=== PATIENT | female | born 1940 | race Caucasian/White ===

== ENCOUNTER 2016-05-05 11:38 | Inpatient (IN) | payer MEDICARE ==
--- NOTE | 2016-05-05 11:45 | ER Document Report ---
ED Respiratory Problem - General Stated Complaint: DIFFICULTY BREATHING Mode of Arrival: Medic Information source: Patient, Emergency Med Personnel, Outside Facility Records TRAVEL OUTSIDE OF THE [place] IN LAST 30 DAYS: No - HPI Patient complains to provider of: Short of breath Onset: Last week Duration: Worse/persistent - YESTERDAY Quality of pain: Other - TEARING, RETROSTERNAL W/ COUGH Context: denies: DVT, Hx asthma, Hx COPD Short of Breath: Moderate Chest pain/discomfort: Center Cough: Productive Sputum amount: Small Sputum color: Yellow Sputum consistency: Mucoid At home treatment: Diuretics EMS treatments: Oxygen Associated symptoms: Chills, Cough, Fever, Short of breath. denies: Leg/calf/ joint pain, Orthopnea Similar symptoms previously: Yes Recently seen / treated by doctor: Yes - NATHALIE Mixon, 04/30; PCP TODAY - Related Data Allergies/Adverse Reactions: ciprofloxacin [From Cipro] Allergy (Verified 04/30/16 11:11) codeine Allergy (Verified 04/30/16 11:11) isosorbide [From Isordil] Allergy (Verified 04/30/16 11:11) tramadol Allergy (Verified 04/30/16 11:11) dopsone Allergy (Uncoded 04/30/16 11:11) Past Medical History - General Information source: Patient - Social History Smoking Status: Former Smoker Cigarette use (# per day): No Frequency of alcohol use: Rare Drug Abuse: None Lives with: Spouse/Significant other Family History: Reviewed & Not Pertinent Patient has suicidal ideation: No Patient has homicidal ideation: No - Past Medical History Cardiac Medical History: Reports: Hx Atrial Fibrillation, Hx Hypertension Pulmonary Medical History: Reports: None Neurological Medical History: Reports: None Endocrine Medical History: Reports: None Renal/ Medical History: Reports: None Malignancy Medical History: Reports: None GI Medical History: Reports: None Musculoskeltal Medical History: Reports Hx Arthritis Psychiatric Medical History: Reports: None Physical Exam - Vital signs Vitals: Temp Pulse Resp BP Pulse Ox 99.5 F 106 H 22 H 103/59 L 96 05/05/16 11:52 05/05/16 11:52 05/05/16 11:52 05/05/16 11:52 05/05/16 11:52 Interpretation: Tachycardic, Tachypneic Course - Vital Signs Vital signs: Temp Pulse Resp BP Pulse Ox 99.5 F 107 H 18 104/71 94 05/05/16 11:52 05/05/16 12:32 05/05/16 12:32 05/05/16 12:32 05/05/16 12:32 - Laboratory Result Diagrams: 05/05/16 12:20 05/05/16 12:20 Laboratory results interpreted by me: 05/05/16 05/05/16 05/05/16 12:20 12:20 12:35 WBC 18.7 H Hgb 11.9 L Hct 35.1 L RDW 14.1 H Seg Neuts % (Manual) 89 H Band Neutrophils % 7 H Lymphocytes % (Manual) 1 L Monocytes % (Manual) 1 L Abs Neuts (Manual) 18.0 H Abs Lymphs (Manual) 0.4 L Chloride 95 L Glucose 125 H Creatine Kinase 180 H Urine Ketones TRACE H Urine Blood SMALL H Ur Leukocyte Esterase TRACE H Urine Ascorbic Acid 40 H - EKG Interpretation by Me EKG shows normal: [place], Intervals, QRS Complexes. abnormal: Sinus rhythm, ST-T Waves - ST-T ABNLS, NS Rate: Normal - Consults DR. HO Time consulted: 13:20 Reason for consultation: 05/05/16 13:23 AGREES TO ADMIT Consulted provider: will come to ER Discharge - Discharge Clinical Impression: Hypoxemia Pneumonia Qualifiers: Pneumonia type: due to unspecified organism Laterality: left Lung location: lower lobe of lung Qualified Code(s): J18.1 - Lobar pneumonia, unspecified organism Atrial fibrillation Qualifiers: Atrial fibrillation type: chronic Qualified Code(s): I48.2 - Chronic atrial fibrillation Condition: Good Disposition: ADMITTED INPATIENT Admitting Provider: Hospitalist Unit Admitted: Telemetry Referrals: ROSHAN LOUISE MD [Primary Care Provider] - Follow up as needed
[2016-05-05 12:39] LABS: HEMATOCRIT 35.1 % (36.0-47.0); HEMOGLOBIN 11.9 g/dL (12.0-15.5); HGB HCT DIFFERENCE 0.6; MEAN CORPUSCULAR HGB CONC 33.9 g/dL (32.0-36.0); MEAN CORPUSCULAR VOLUME 94 fl (80-97); RED BLOOD COUNT 3.72 10^6/uL (3.72-5.28); RED CELL DISTRIBUTION WIDTH 14.1 % (11.5-14.0); WHITE BLOOD COUNT 18.7 10^3/uL (4.0-10.5)
[2016-05-05 12:42] LABS: PROTHROMBIN TIME 14.1 SEC (11.4-15.4)
[2016-05-05 12:53] LABS: BAND NEUTROPHILS % (MANUAL) 7 % (3-5); BASOPHILS % (MANUAL) 1 % (0-2); EOSINOPHILS % (MANUAL) 0 % (0-6); LYMPHOCYTES % (MANUAL) 1 % (13-45); TOTAL CELLS COUNTED 100
[2016-05-05 12:54] LABS: PLATELET CLUMPS PRESENT; RBC MORPHOLOGY COMMENT NORMO-CYTIC/CHROMIC; TOXIC GRANULATION SLIGHT
[2016-05-05 12:58] LABS: ALANINE AMINOTRANSFERASE 38 U/L (9-52); ALBUMIN 3.9 g/dL (3.5-5.0); ALKALINE PHOSPHATASE 69 U/L (38-126); ANION GAP 15 (5-19); ASPARTATE AMINO TRANSFERASE 29 U/L (14-36); BILIRUBIN,TOTAL 0.9 mg/dL (0.2-1.3); BLOOD UREA NITROGEN 19 mg/dL (7-20); CALCIUM 8.8 mg/dL (8.4-10.2); CARBON DIOXIDE 28 mmol/L (22-30); CHLORIDE 95 mmol/L (98-107); CREATINE KINASE 180 U/L (30-135); CREATININE RESULT 0.77 mg/dL (0.52-1.25); GLUCOSE 125 mg/dL (75-110); POTASSIUM 4.2 mmol/L (3.6-5.0); SODIUM 138.1 mmol/L (137-145); TOTAL PROTEIN 6.8 g/dL (6.3-8.2)
[2016-05-05 12:59] LABS: APPEARANCE,URINE CLEAR; BILIRUBIN,URINE NEGATIVE (NEGATIVE); GLUCOSE, URINE NEGATIVE (NEGATIVE); KETONES,URINE TRACE mg/dL (NEGATIVE); LEUKOCYTE ESTERASE,URINE TRACE (NEGATIVE); NITRITE,URINE NEGATIVE (NEGATIVE); PROTEIN,URINE NEGATIVE (NEGATIVE); URINE SPECIFIC GRAVITY 1.009; UROBILINOGEN,URINE NEGATIVE mg/dL (<2.0)
[2016-05-05 13:10] LABS: CREATINE KINASE MB 2.77 ng/mL (<4.55); TROPONIN I 0.016 ng/mL
[2016-05-05] MEDS ORDERED: NORMAL SALINE 1000 ML 1,000 ML IV PRN (13:59)
[2016-05-05] MEDS ORDERED: ACETAMINOPHEN 325 MG TABLET PO PRN (13:59)
--- NOTE | 2016-05-05 14:27 | PDOC H&P ---
History of Present Illness Admission Date/PCP: 05/05/16 13:40 PCP: Dr. ROSHAN LOUISE [facility] Patient complains of: Cough/fever History of Present Illness: RONALD WHEELER is a 76 year old female with past medical history of atrial fibrillation, polyarteritis nodosa, coronary artery disease, hypertension, hypothyroidism presents to the emergency department with cough and fever after being evaluated at her primary care provider's office. Patient was having symptoms for the past 10 days. She was seen in the emergency department 5 days ago and diagnosed with a viral illness. She has not improved and has possibly even come increasingly sick. She has also had shortness of breath. It is notable that with regard to her polyarteritis nodosa she is on prednisone 10 mg daily and azathioprine 100 mg daily. She is followed by a sketcher for this. Medications listed below have not been verified at the time of this documentation. According to electronic pharmacy records patient takes the following medications: 1. Lisinopril 20 mg twice daily 2. Simvastatin 40 mg daily 3. Lasix 20 mg daily 4. Synthroid 100 g daily 5. Prednisone 10 mg daily 6. Azathioprine 100 mg daily 7. Xarelto 20 g daily Past Medical History Cardiac Medical History: Reports: Atrial Fibrillation, Congestive Heart Failure , Myocardial Infarction, Hyperlipidema, Hypertension Pulmonary Medical History: Reports: Pneumonia Neurological Medical History: Reports: None Endocrine Medical History: Reports: Hypothyroidism Renal/ Medical History: Reports: None Malignancy Medical History: Reports: Breast Cancer GI Medical History: Reports: None Musculoskeltal Medical History: Reports: Arthritis - Polyarteritis nodosa Psychiatric Medical History: Reports: None Past Surgical History Past Surgical History: Reports: Cardiac Catheterization - NO STENTS OR PACEMAKER , Cholecystectomy, Mastectomy - Right Social History Information Source: Patient Lives with: Spouse/Significant other Smoking Status: Former Smoker Frequency of Alcohol Use: None Hx Recreational Drug Use: No Hx Prescription Drug Abuse: No - Advance Directive Resuscitation Status: Full Code Family History Family History: CAD Parental Family History Reviewed: Yes Children Family History Reviewed: Yes Sibling(s) Family History Reviewed.: Yes Medication/Allergy Home Medications: Azathioprine [Azathioprine] 100 mg PO DAILY 05/05/16 Allergies/Adverse Reactions: ciprofloxacin [From Cipro] Allergy (Verified 04/30/16 11:11) codeine Allergy (Verified 04/30/16 11:11) isosorbide [From Isordil] Allergy (Verified 04/30/16 11:11) tramadol Allergy (Verified 04/30/16 11:11) dopsone Allergy (Uncoded 04/30/16 11:11) Review of Systems Constitutional: PRESENT: chills, fatigue, fever(s), night sweats, weakness. ABSENT: headache(s), weight gain, weight loss Eyes: ABSENT: visual disturbances Ears: ABSENT: hearing changes Cardiovascular: PRESENT: dyspnea on exertion. ABSENT: chest pain, edema, orthropnea, palpitations Respiratory: PRESENT: cough, dyspnea. ABSENT: hemoptysis Gastrointestinal: PRESENT: nausea. ABSENT: abdominal pain, constipation, diarrhea, hematemesis, hematochezia, vomiting Genitourinary: ABSENT: dysuria, hematuria Musculoskeletal: ABSENT: joint swelling Integumentary: ABSENT: rash, wounds Neurological: ABSENT: abnormal gait, abnormal speech, confusion, dizziness, focal weakness, syncope Psychiatric: ABSENT: anxiety, depression, homidical ideation, suicidal ideation Endocrine: ABSENT: cold intolerance, heat intolerance, polydipsia, polyuria Hematologic/Lymphatic: ABSENT: easy bleeding, easy bruising Physical Exam Vital Signs: Temp Pulse Resp BP Pulse Ox 99.5 F 107 H 18 104/71 94 05/05/16 11:52 05/05/16 12:32 05/05/16 12:32 05/05/16 12:32 05/05/16 12:32 PHYSICAL EXAM: GENERAL: Appears well, no acute distress HEENT: Normocephalic, no scleral icterus, conjunctiva clear, EOEM intact, PERRLA , moist mucous membranes NECK: trachea midline, no thyromegally RESPIRATORY: Rhonchi noted in posterior left lung field CARDIAC: Regular rate and rhythm, faint systolic murmur ABDOMEN: Soft, no distension, no tenderness, no guarding, normal bowel sounds, negative Mari sign RECTAL: deferred : deferred EXTREMITIES: No edema, cyanosis, clubbing MUSCULOSKELETAL: No joint swelling or deformity VASCULAR: normal peripheral pulses NEUROLOGIC: Alert, oriented to person/place/time, normal speech, cranial nerves grossly intact, 5/5 strength in all extremities, tactile sensation intact in all extremities SKIN: No rash, no wounds, no worrisome skin lesions PSYCHIATRIC: Normal mood, normal affect Results Laboratory Results: Labs- All tests 24 hr 05/05/16 05/05/16 05/05/16 12:20 12:20 12:20 WBC 18.7 H RBC 3.72 Hgb 11.9 L Hct 35.1 L MCV 94 MCH 32.0 MCHC 33.9 RDW 14.1 H Plt Count 393 Total Counted 100 Seg Neutrophils % Not Reportable Seg Neuts % (Manual) 89 H Band Neutrophils % 7 H Lymphocytes % Not Reportable Lymphocytes % (Manual) 1 L Atypical Lymphs % 1 Monocytes % Not Reportable Monocytes % (Manual) 1 L Eosinophils % Not Reportable Eosinophils % (Manual) 0 Basophils % Not Reportable Basophils % (Manual) 1 Absolute Neutrophils Not Reportable Abs Neuts (Manual) 18.0 H Absolute Lymphocytes Not Reportable Abs Lymphs (Manual) 0.4 L Absolute Monocytes Not Reportable Abs Monocytes (Manual) 0.2 Absolute Eosinophils Not Reportable Absolute Eos (Manual) 0.0 Absolute Basophils Not Reportable Abs Basophils (Manual) 0.2 Toxic Granulation SLIGHT Clumped Platelets PRESENT Platelet Comment ADEQUATE RBC Morph Comment NORMO-CYTIC/CHROMIC PT INR Sodium 138.1 Potassium 4.2 Chloride 95 L Carbon Dioxide 28 Anion Gap 15 BUN 19 Creatinine 0.77 Est GFR ( Amer) > 60 Est GFR (Non-Af Amer) > 60 Glucose 125 H Calcium 8.8 Total Bilirubin 0.9 Direct Bilirubin 0.0 AST 29 ALT 38 Alkaline Phosphatase 69 Creatine Kinase 180 H CK-MB (CK-2) 2.77 Troponin I 0.016 NT-Pro-B Natriuret Pep 821 Total Protein 6.8 Albumin 3.9 Urine Color Urine Appearance Urine pH Ur Specific [place] Urine Protein Urine Glucose (UA) Urine Ketones Urine Blood Urine Nitrite Urine Bilirubin Urine Urobilinogen Ur Leukocyte Esterase Urine WBC (Auto) Urine RBC (Auto) Squamous Epi Cells Auto Urine Mucus (Auto) Urine Ascorbic Acid 05/05/16 05/05/16 12:20 12:35 WBC RBC Hgb Hct MCV MCH MCHC RDW Plt Count Total Counted Seg Neutrophils % Seg Neuts % (Manual) Band Neutrophils % Lymphocytes % Lymphocytes % (Manual) Atypical Lymphs % Monocytes % Monocytes % (Manual) Eosinophils % Eosinophils % (Manual) Basophils % Basophils % (Manual) Absolute Neutrophils Abs Neuts (Manual) Absolute Lymphocytes Abs Lymphs (Manual) Absolute Monocytes Abs Monocytes (Manual) Absolute Eosinophils Absolute Eos (Manual) Absolute Basophils Abs Basophils (Manual) Toxic Granulation Clumped Platelets Platelet Comment RBC Morph Comment PT 14.1 INR 1.06 Sodium Potassium Chloride Carbon Dioxide Anion Gap BUN Creatinine Est GFR ( Amer) Est GFR (Non-Af Amer) Glucose Calcium Total Bilirubin Direct Bilirubin AST ALT Alkaline Phosphatase Creatine Kinase CK-MB (CK-2) Troponin I NT-Pro-B Natriuret Pep Total Protein Albumin Urine Color YELLOW Urine Appearance CLEAR Urine pH 5.0 Ur Specific [place] 1.009 Urine Protein NEGATIVE Urine Glucose (UA) NEGATIVE Urine Ketones TRACE H Urine Blood SMALL H Urine Nitrite NEGATIVE Urine Bilirubin NEGATIVE Urine Urobilinogen NEGATIVE Ur Leukocyte Esterase TRACE H Urine WBC (Auto) 0 Urine RBC (Auto) 2 Squamous Epi Cells Auto 2 Urine Mucus (Auto) RARE Urine Ascorbic Acid 40 H EKG Comments: Atrial fibrillation, Q waves noted in V4, V5, V6 Impressions: Chest X-Ray 05/05/16 12:04 IMPRESSION: LEFT LOWER LOBE AIRSPACE DISEASE SUGGESTIVE OF PNEUMONIA. RECOMMEND FOLLOWUP RADIOGRAPHS 4 TO 6 WEEKS TO ENSURE RESOLUTION. Assessment & Plan - Diagnosis (1) Hypoxemia Is this a current diagnosis for this admission?: YesPlan: Patient had documented hypoxemia with O2 sat in the 80s at primary care provider 's office. Patient is currently stable on 2 L nasal cannula oxygen. Continue to wean off as tolerated. Patient is not oxygen dependent at baseline. (2) Sepsis Is this a current diagnosis for this admission?: YesPlan: This is secondary to pneumonia. IV antibiotics, IV fluids, antipyretics as needed. Check blood and sputum cultures. (3) Pneumonia Qualifiers: Pneumonia type: due to unspecified organism Laterality: left Lung location: lower lobe of lung Qualified Code(s): J18.1 - Lobar pneumonia, unspecified organism Is this a current diagnosis for this admission?: YesPlan: Likely bacterial. This is probably a complication of recent upper respiratory infection. It is further Located by the fact the patient is on immunosuppressive medications (prednisone, azathioprine). Patient will be started on IV Rocephin and IV azithromycin. Check sputum culture and blood cultures. (4) Hypothyroid Is this a current diagnosis for this admission?: YesPlan: Continue Synthroid. (5) Polyarteritis nodosa Is this a current diagnosis for this admission?: YesPlan: Increase prednisone to 20 mg daily for stress dosing. (6) Coronary artery disease Is this a current diagnosis for this admission?: Yes (7) Status post right mastectomy Is this a current diagnosis for this admission?: Yes (8) Hypertension Is this a current diagnosis for this admission?: YesPlan: Hold lisinopril at this time secondary to low blood pressure and sepsis. (9) Atrial fibrillation Qualifiers: Atrial fibrillation type: chronic Qualified Code(s): I48.2 - Chronic atrial fibrillation Is this a current diagnosis for this admission?: YesPlan: Continue Xarelto 20 mg daily. Patient does not appear to be on medication for heart rate control. She is slightly tachycardic at this time secondary to sepsis/pneumonia. She is followed by Dr. Youssef of cardiology and [facility]. - Time Time Spent: Greater than 70 Minutes Anticipated discharge: Home Within: within 72 hours
[2016-05-05] MEDS ORDERED: GUAIFENESIN 600 MG TABLET.SA PO ONE (16:00)
[2016-05-05] MEDS ORDERED: ENOXAPARIN SODIUM INJ 40 MG/0.4 ML DISP.SYRIN SUBCUT ONE (16:00)
[2016-05-05] MEDS: RIVAROXABAN 10 MG TABLET PO SCH (16:18)
[2016-05-05] MEDS: ALBUTEROL SULFATE 0.083% NEB 2.5 MG/3 ML AMPUL NEB PRN ×2 (16:42→23:50)
[2016-05-05] MEDS: CEFTRIAXONE 1 GM/D5W RTU 1 GM/50 ML RTUPB IV SCH (17:01)
[2016-05-05] MEDS: AZITHROMYCIN 500 MG in DEXTROSE 5%-WATER 250 ML IV SCH (17:52)
[2016-05-05] MEDS: SIMVASTATIN 40 MG TABLET PO SCH (21:33)
--- NOTE | 2016-05-05 22:41 | EKG REPORT ---
SEVERITY:- ABNORMAL ECG - ATRIAL FIBRILLATION, V-RATE 87-146 LATERAL INFARCT, AGE INDETERMINATE : Confirmed by: Tj Tai MD 05-May-2016 22:40:13
[2016-05-05] MEDS: CARVEDILOL 12.5 MG TABLET PO SCH (23:59)
[2016-05-06 05:58] LABS: HEMATOCRIT 34.2 % (36.0-47.0); HEMOGLOBIN 11.5 g/dL (12.0-15.5); HGB HCT DIFFERENCE 0.3; MEAN CORPUSCULAR HGB CONC 33.8 g/dL (32.0-36.0); MEAN CORPUSCULAR VOLUME 95 fl (80-97); RED CELL DISTRIBUTION WIDTH 14.6 % (11.5-14.0); WHITE BLOOD COUNT 16.3 10^3/uL (4.0-10.5)
[2016-05-06 06:10] LABS: ANION GAP 14 (5-19); BLOOD UREA NITROGEN 23 mg/dL (7-20); CALCIUM 7.9 mg/dL (8.4-10.2); CARBON DIOXIDE 27 mmol/L (22-30); CHLORIDE 100 mmol/L (98-107); GLUCOSE 131 mg/dL (75-110); POTASSIUM 4.2 mmol/L (3.6-5.0); SODIUM 140.6 mmol/L (137-145)
[2016-05-06 06:23] LABS: BAND NEUTROPHILS % (MANUAL) 6 % (3-5); BASOPHILS % (MANUAL) 0 % (0-2); EOSINOPHILS % (MANUAL) 0 % (0-6); LYMPHOCYTES % (MANUAL) 3 % (13-45); TOTAL CELLS COUNTED 100
[2016-05-06 06:25] LABS: ANISOCYTOSIS SLIGHT; TOXIC GRANULATION 1+
[2016-05-06] MEDS ORDERED: ENOXAPARIN SODIUM INJ 40 MG/0.4 ML DISP.SYRIN SUBCUT SCH (08:00)
[2016-05-06] MEDS: CHOLECALCIFEROL (D3) 1,000 UNIT TABLET PO SCH (09:41)
[2016-05-06] MEDS: LEVOTHYROXINE SODIUM 0.1 MG TABLET PO SCH (09:41)
[2016-05-06] MEDS: GUAIFENESIN 600 MG TABLET.SA PO SCH (09:41)
[2016-05-06] MEDS: PREDNISONE 20 MG TABLET PO SCH (09:41)
[2016-05-06] MEDS: CARVEDILOL 12.5 MG TABLET PO SCH (09:41)
[2016-05-06] MEDS ORDERED: (PENDING PHARMACY ID) (Cholecalciferol (Vitamin D3) [Vitamin D3] 2,000 UNIT) PO SCH (10:00)
--- NOTE | 2016-05-06 11:54 | PDOC PROGRESS REPORT ---
Subjective Progress Note for:: 05/06/16 Subjective:: Patient is feeling subjectively a little bit better today. She is still very fatigued and having occasional sweats. Patient denies headache, new focal weakness, chest pain, abdominal pain, nausea, vomiting, diarrhea, constipation. Physical Exam Vital Signs: Temp Pulse Resp BP Pulse Ox 98.2 F 94 17 118/70 96 05/06/16 08:04 05/06/16 08:04 05/06/16 08:04 05/06/16 08:04 05/06/16 08:04 Intake & Output 05/05/16 05/06/16 05/07/16 06:59 06:59 06:59 Intake Total 1950 Balance 1950 Weight 77.1 kg GENERAL: No acute distress HEENT: Conjunctiva clear, nonicteric, moist mucous membranes, no JVD, midline trachea RESPIRATORY: Rhonchi noted in posterior left lung field CARDIAC: Irregularly irregular, no murmurs/gallops/rubs ABDOMEN: Soft, nondistended, nontender, positive bowel sounds, no rebound, no guarding EXTREMETIES: No edema, cyanosis, clubbing NEUROLOGIC: Alert, oriented to person/place/time, CN's grossly intact, no focal deficits SKIN: No rash, wounds PSYCH: Normal mood, normal affect Results Laboratory Results: 05/06/16 04:39 05/06/16 04:39 05/06/16 05/06/16 04:39 04:39 WBC 16.3 H RBC 3.60 L Hgb 11.5 L Hct 34.2 L MCV 95 MCH 32.0 MCHC 33.8 RDW 14.6 H Plt Count 396 Seg Neutrophils % Not Reportable Lymphocytes % Not Reportable Monocytes % Not Reportable Eosinophils % Not Reportable Basophils % Not Reportable Absolute Neutrophils Not Reportable Absolute Lymphocytes Not Reportable Absolute Monocytes Not Reportable Absolute Eosinophils Not Reportable Absolute Basophils Not Reportable Sodium 140.6 Potassium 4.2 Chloride 100 Carbon Dioxide 27 Anion Gap 14 BUN 23 H Creatinine 0.80 Est GFR ( Amer) > 60 Est GFR (Non-Af Amer) > 60 Glucose 131 H Calcium 7.9 L Impressions: Chest X-Ray 05/05/16 12:04 IMPRESSION: LEFT LOWER LOBE AIRSPACE DISEASE SUGGESTIVE OF PNEUMONIA. RECOMMEND FOLLOWUP RADIOGRAPHS 4 TO 6 WEEKS TO ENSURE RESOLUTION. Assessment & Plan - Diagnosis (1) Hypoxemia Is this a current diagnosis for this admission?: YesPlan: Patient had documented hypoxemia with O2 sat in the 80s at primary care provider 's office. Patient is currently stable on 2 L nasal cannula oxygen. Continue to wean off as tolerated. Patient is not oxygen dependent at baseline. (2) Sepsis Is this a current diagnosis for this admission?: YesPlan: This is secondary to pneumonia. IV antibiotics, IV fluids, antipyretics as needed. Check blood and sputum cultures. (3) Pneumonia Qualifiers: Pneumonia type: due to unspecified organism Laterality: left Lung location: lower lobe of lung Qualified Code(s): J18.1 - Lobar pneumonia, unspecified organism Is this a current diagnosis for this admission?: YesPlan: Likely bacterial. This is probably a complication of recent upper respiratory infection. It is further complicated by the fact the patient is on immunosuppressive medications (prednisone, azathioprine). Continue IV Rocephin and IV azithromycin pending sputum culture and blood cultures. (4) Hypothyroid Is this a current diagnosis for this admission?: YesPlan: Continue Synthroid. (5) Polyarteritis nodosa Is this a current diagnosis for this admission?: YesPlan: Continue prednisone 20 mg daily for stress dosing. Hold azathioprine for now. (6) Coronary artery disease Is this a current diagnosis for this admission?: Yes (7) Status post right mastectomy Is this a current diagnosis for this admission?: Yes (8) Hypertension Is this a current diagnosis for this admission?: YesPlan: Hold lisinopril at this time secondary to low blood pressure and sepsis. (9) Atrial fibrillation Qualifiers: Atrial fibrillation type: chronic Qualified Code(s): I48.2 - Chronic atrial fibrillation Is this a current diagnosis for this admission?: YesPlan: Continue Xarelto 20 mg daily. Continue Coreg. She is followed by Dr[facility]. - Time Time Spent with patient: 35 or more minutes
[2016-05-06] MEDS: ALBUTEROL SULFATE 0.083% NEB 2.5 MG/3 ML AMPUL NEB PRN (15:34)
[2016-05-06] MEDS: CEFTRIAXONE 1 GM/D5W RTU 1 GM/50 ML RTUPB IV SCH (17:28)
[2016-05-06] MEDS: RIVAROXABAN 10 MG TABLET PO SCH (17:28)
[2016-05-06] MEDS ORDERED: VANCOMYCIN HCL INJ 500 MG VIAL ONE (20:46)
[2016-05-06] MEDS ORDERED: AZITHROMYCIN INJ 500 MG VIAL IV ONE (21:22)
[2016-05-07] MEDS: CARVEDILOL 12.5 MG TABLET PO SCH ×2 (00:17→10:50)
[2016-05-07] MEDS: SIMVASTATIN 40 MG TABLET PO SCH (00:18)
[2016-05-07] MEDS: GUAIFENESIN 600 MG TABLET.SA PO SCH ×2 (00:19→10:51)
[2016-05-07] MEDS: AZITHROMYCIN 500 MG in DEXTROSE 5%-WATER 250 ML IV SCH (05:14)
[2016-05-07 07:29] LABS: HEMATOCRIT 33.1 % (36.0-47.0); HEMOGLOBIN 11.3 g/dL (12.0-15.5); HGB HCT DIFFERENCE 0.8; MEAN CORPUSCULAR HEMOGLOBIN 32.3 pg (27.0-33.4); MEAN CORPUSCULAR VOLUME 95 fl (80-97); RED BLOOD COUNT 3.49 10^6/uL (3.72-5.28); RED CELL DISTRIBUTION WIDTH 14.2 % (11.5-14.0); WHITE BLOOD COUNT 18.3 10^3/uL (4.0-10.5)
[2016-05-07 07:43] LABS: ANION GAP 14 (5-19); BLOOD UREA NITROGEN 19 mg/dL (7-20); CALCIUM 7.8 mg/dL (8.4-10.2); CARBON DIOXIDE 25 mmol/L (22-30); CHLORIDE 104 mmol/L (98-107); CREATININE RESULT 0.69 mg/dL (0.52-1.25); GLUCOSE 109 mg/dL (75-110); POTASSIUM 4.4 mmol/L (3.6-5.0); SODIUM 142.7 mmol/L (137-145)
[2016-05-07 07:52] LABS: BASOPHILS % (MANUAL) 0 % (0-2); EOSINOPHILS % (MANUAL) 0 % (0-6); LYMPHOCYTES % (MANUAL) 6 % (13-45); TOTAL CELLS COUNTED 100
[2016-05-07 07:53] LABS: ANISOCYTOSIS SLIGHT; TOXIC GRANULATION 1+
[2016-05-07] MEDS ORDERED: DOXYCYCLINE HYCLATE 100 MG TABLET PO ONE (10:30)
[2016-05-07] MEDS: CHOLECALCIFEROL (D3) 1,000 UNIT TABLET PO SCH (10:51)
[2016-05-07] MEDS: LEVOTHYROXINE SODIUM 0.1 MG TABLET PO SCH (10:51)
[2016-05-07] MEDS: PREDNISONE 20 MG TABLET PO SCH (10:51)
[2016-05-07 12:05] VITALS: BP 102/65
--- NOTE | 2016-05-07 15:14 | PDOC DISCHARGE SUMMARY ---
General - Admit/Disc Date/PCP Admission Date/Primary Care Provider: 05/05/16 13:59 ROSHAN LOUISE Discharge Date: 05/07/16 - Discharge Diagnosis (1) Hypoxemia Is this a current diagnosis for this admission?: YesSummary: Patient was hypoxemic on presentation was able to be weaned off oxygen throughout hospitalization. (2) Sepsis Is this a current diagnosis for this admission?: YesSummary: Patient presented with sepsis secondary to pneumonia. She had a persistent leukocytosis at discharge but was afebrile and clinically improving. Prednisone may have been contributing to leukocytosis. (3) Pneumonia Is this a current diagnosis for this admission?: YesSummary: Patient had pneumonia that was likely bacterial. She was initially started on IV Rocephin and IV azithromycin and made clinical improvement. She was afebrile time of discharge. Blood cultures are no growth. Sputum cultures showed normal kylie. Patient was transitioned to oral doxycycline at discharge. Patient's pneumonia has been complicated by chronic immunosuppressive therapy for polyarteritis nodosum. (4) Hypothyroid Is this a current diagnosis for this admission?: Yes (5) Polyarteritis nodosa Is this a current diagnosis for this admission?: YesSummary: Patient's azathioprine was held during admission. She is advised to restart this in 2-3 days. Patient was taking prednisone 10 mg daily on presentation. This was increased to 20 mg daily for stress dosing secondary to acute infection. She is advised to take 20 mg daily for the next 2 days and return to her maintenance dose of 10 mg daily. (6) Coronary artery disease Is this a current diagnosis for this admission?: Yes (7) Status post right mastectomy Is this a current diagnosis for this admission?: Yes (8) Hypertension Is this a current diagnosis for this admission?: Yes (9) Atrial fibrillation Is this a current diagnosis for this admission?: Yes - Additional Information Resuscitation Status: Full Code Discharge Diet: Regular Discharge Activity: Activity As Tolerated Home Medications: Acetaminophen [Tylenol Extra Strength] 1,000 mg PO HSP PRN 05/05/16 Alendronate Sodium 1 tab PO ASDIR 05/05/16 Ascorbic Acid [Vitamin C 500 mg Tablet] 500 mg PO DAILY 05/05/16 Aspirin [Aspirin 81 mg Chewable Tablet] 81 mg PO DAILY 05/05/16 Azathioprine 100 mg PO DAILY 05/05/16 Calcium Carbonate/Vitamin D3 [Calcium 600 + Vit D Tablet] 1 tab PO DAILY Carvedilol 1 tab PO BID 05/05/16 Cholecalciferol (Vitamin D3) [Vitamin D3] 2,000 unit PO DAILY 05/05/16 Levothyroxine Sodium 1 tab PO DAILY 05/05/16 Lisinopril 1 tab PO BID 05/05/16 Nitroglycerin [Nitrostat] 1 tab PO ASDIR PRN 05/05/16 Prednisone 10 mg PO DAILY 05/05/16 Rivaroxaban [Xarelto] 1 tab PO DAILY 05/05/16 Simvastatin 1 tab PO DAILY 05/05/16 Ubidecarenone [Co Q-10] 100 mg PO DAILY 05/05/16 Doxycycline Hyclate 100 mg PO BID #20 capsule 05/07/16 Guaifenesin [Mucinex Sr 600 mg Tablet.sa] 1,200 mg PO Q12 #20 tablet.sa History of Present Illness Patient complains of: Cough, shortness of breath History of Present Illness: RONALD WHEELER is a 76 year old female with past medical history of atrial fibrillation, polyarteritis nodosa, coronary artery disease, hypertension, hypothyroidism presents to the emergency department with cough and fever after being evaluated at her primary care provider's office. Patient was having symptoms for the past 10 days. She was seen in the emergency department 5 days ago and diagnosed with a viral illness. She has not improved and has possibly even come increasingly sick. She has also had shortness of breath. It is notable that with regard to her polyarteritis nodosa she is on prednisone 10 mg daily and azathioprine 100 mg daily. She is followed by a station cook for this. Hospital Course Hospital Course: See above Physical Exam Vital Signs: Temp Pulse Resp BP Pulse Ox 98.1 F 89 20 102/65 97 05/07/16 10:00 05/07/16 10:00 05/07/16 10:00 05/07/16 10:05/07/16 10:00 Intake & Output 05/06/16 05/07/16 05/08/16 06:59 06:59 06:59 Intake Total 1950 7677 Balance 1950 395 Weight 77.1 kg 77.2 kg GENERAL: No acute distress HEENT: Conjunctiva clear, nonicteric, moist mucous membranes, no JVD, midline trachea RESPIRATORY: Scattered rhonchi and posterior lung [place], good air excursion CARDIAC: Irregular rhythm, no murmurs/gallops/rubs ABDOMEN: Soft, nondistended, nontender, positive bowel sounds, no rebound, no guarding EXTREMETIES: No edema, cyanosis, clubbing NEUROLOGIC: Alert, oriented to person/place/time, CN's grossly intact, no focal deficits SKIN: No rash, wounds PSYCH: Normal mood, normal affect Results Laboratory Results: 05/07/16 06:17 05/07/16 06:17 05/07/16 05/07/16 06:17 06:17 WBC 18.3 H RBC 3.49 L Hgb 11.3 L Hct 33.1 L MCV 95 MCH 32.3 MCHC 34.0 RDW 14.2 H Plt Count 460 H Seg Neutrophils % Not Reportable Lymphocytes % Not Reportable Monocytes % Not Reportable Eosinophils % Not Reportable Basophils % Not Reportable Absolute Neutrophils Not Reportable Absolute Lymphocytes Not Reportable Absolute Monocytes Not Reportable Absolute Eosinophils Not Reportable Absolute Basophils Not Reportable Sodium 142.7 Potassium 4.4 Chloride 104 Carbon Dioxide 25 Anion Gap 14 BUN 19 Creatinine 0.69 Est GFR ( Amer) > 60 Est GFR (Non-Af Amer) > 60 Glucose 109 Calcium 7.8 L 05/05/16 16:19 Sputum Gram Stain - Final 05/05/16 16:19 Sputum Sputum Culture - Final NORMAL KYLIE EKG Comments: Atrial fibrillation Impressions: Chest X-Ray 05/05/16 12:04 IMPRESSION: LEFT LOWER LOBE AIRSPACE DISEASE SUGGESTIVE OF PNEUMONIA. RECOMMEND FOLLOWUP RADIOGRAPHS 4 TO 6 WEEKS TO ENSURE RESOLUTION. Qualifiers PATEINT BEING DISCHARGED WITH ANY OF THE FOLLOWING DIAGNOSIS?: No Plan Discharge Plan: Follow-up primary care provider. Follow-up cardiology. Follow-up with rheumatology. Follow-up chest x-ray 3-4 weeks. Time Spent: Less than 30 Minutes
== END 2016-05-07 14:09 | disposition home or self-care (01) | DRG 871 ==
LOC: ER 11:38 → UNDOADMIN 13:40 → EH 13:40 → 4N 15:26
PROVIDERS: ADMIT Family Medicine; ATTEND Family Medicine
DX: A41.9 Sepsis, unspecified organism (principal); J18.1 Lobar pneumonia, unspecified organism; M30.0 Polyarteritis nodosa; R09.02 Hypoxemia; I48.2 Chronic atrial fibrillation; I10 Essential (primary) hypertension; I25.10 Atherosclerotic heart disease of native coronary artery without angina pectoris; E03.9 Hypothyroidism, unspecified; M19.90 Unspecified osteoarthritis, unspecified site; Z88.1 Allergy status to other antibiotic agents; Z88.5 Allergy status to narcotic agent; Z79.01 Long term (current) use of anticoagulants; Z79.52 Long term (current) use of systemic steroids; Z87.891 Personal history of nicotine dependence
CPT/HCPCS: 36415; 71020; 80048; 80053; 81001; 82550; 82553; 83880; 84484; 85025; 85610; 87040; 87070; 87205; 93005; 93010; 94640; 94667; 94668; 94799; 99285; J0456; J0696; J7030; J7060; J7512